=== PATIENT | male | born 1990 | race Caucasian/White ===

== ENCOUNTER 2018-03-03 22:58 | Emergency (ER) | payer OTHER, SELFPAY ==
--- NOTE | 2018-03-03 22:58 | DT_ITS ---
This patient was seen during an EMR downtime March 04, 2018 - March 11, 2018. This patient may have a combination of paper and electronic documentation or all paper documentation. All documentation is viewable within the e-chart portion of [employer] for each patient visit.
[2018-03-03 23:00] VITALS: BP 173/117; PULSE 119; RESP 19; TEMP 36.4; O2SAT 99; BMI 33.3
--- NOTE | 2018-03-03 23:17 | ED.VISSUMM ---
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 He denies any obvious injury or direct trauma to the area. He reports the area is more uncomfortable with motion the left upper extremity. No other complaints at this time. Physical Examination: [] Afebrile, vital signs stable. 27-year-old male no acute distress. Conversational. Examination of the back reveals left-sided medial thoracic/rhomboid tenderness palpation. No midline cervical, thoracic, lumbosacral spine tenderness. Back exam was otherwise very benign. Test Results: [] None. Emergency Department Course and Treatment: [] Patient given intramuscular Toradol for analgesia. He did not require any further treatment or evaluation. He was given no prescription at discharge and encouraged to take [id number] NSAIDs or Tylenol. Treatment Plan: [] Follow-up with primary care physician. Disposition: [] Discharge, stable. Impression: [] Thoracic muscle strain This note was generated with Five9 dictation software. It may contain incorrect words, spelling, and punctuation that were not noted in review of the chart prior to signing ED Disposition - Plan for ED Patient: Chief Complaint: Back Referrals: Care Physician,No Primary [Primary Care Provider] -
--- NOTE | 2018-03-03 23:20 | ED.DCSUM_ITS ---
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 He denies any obvious injury or direct trauma to the area. He reports the area is more uncomfortable with motion the left upper extremity. No other complaints at this time. Physical Examination: [] Afebrile, vital signs stable. 27-year-old male no acute distress. Conversational. Examination of the back reveals left-sided medial thoracic/rhomboid tenderness palpation. No midline cervical, thoracic, lumbosacral spine tenderness. Back exam was otherwise very benign. Test Results: [] None. Emergency Department Course and Treatment: [] Patient given intramuscular Toradol for analgesia. He did not require any further treatment or evaluation. He was given no prescription at discharge and encouraged to take hedy-uqh-lytmaed NSAIDs or Tylenol. Treatment Plan: [] Follow-up with primary care physician. Disposition: [] Discharge, stable. Impression: [] Thoracic muscle strain This note was generated with [employer] dictation software. It may contain incorrect words, spelling, and punctuation that were not noted in review of the chart prior to signing ED Disposition - Plan for ED Patient: Chief Complaint: Back Referrals: Care Physician,No Primary [Primary Care Provider] -
--- NOTE | 2018-03-03 23:20 | ED.DEP ---
ED Disposition - Plan for ED Patient: Disposition: Home or Assisted Living Chief Complaint: Back Instructions: ED Sprain Thoracic Spine Referrals: Care Physician,Katie Primary [Primary Care Provider] - [facility] [[facility]] -
[2018-03-03] MEDS: Ketorolac 30 MG/ML Syringe IM (23:38)
[2018-03-04 00:02] VITALS: BP 148/108; PULSE 101; RESP 16
== END 2018-03-04 00:04 | disposition home or self-care (01) ==
LOC: ED 23:32
PROVIDERS: Emergency Provider Emergency Medicine
DX: S29.012A Strain of muscle and tendon of back wall of thorax, initial encounter (principal); X50.1XXA Overexertion from prolonged static or awkward postures, initial encounter; Y93.89 Activity, other specified; Y92.63 Factory as the place of occurrence of the external cause; Y99.0 Civilian activity done for income or pay
CPT/HCPCS: 99283

== ENCOUNTER 2023-10-05 20:43 | Emergency (ER) | payer BC, SELFPAY ==
[2023-10-05 20:43] VITALS: BP 175/97; PULSE 92; RESP 16; TEMP 36.6; O2SAT 98; BMI 36.9
--- NOTE | 2023-10-06 00:02 | EX.ED.DYSGE1 ---
HPI <Dr. Goldie Raya DO - Last Filed: 10/14/23 07:05> History of Present Illness Chief Complaint: Cold Sx Informant: patient Narrative Narrative: Patient is a 33-year-old male with no significant past medical history presenting with 4 days of flulike symptoms and sore throat. He states it started Sunday evening, 3 days ago where he felt like he needed to cough and really could not get anything moving. The next day he hurt all over and had bodyaches. He has developed congestion, neck soreness, headache and sore throat. He states he is felt warm but has not checked his temperature. Denies any nausea vomiting or diarrhea. Denies any abdominal pain. Been alternating NyQuil and DayQuil which does help with some of his symptoms. Notes that since the DayQuil roll off his headache has returned. Denies any sick contacts. No other complaints or concerns at this time. States swallowing is quite painful. PFSH <Dr. Goldie Raya DO - Last Filed: 10/14/23 07:05> [facility] Home Medications Ibuprofen [Motrin] 800 mg PO TID PRN PRN Pain #20 tabs 06/14/16 [Rx Last Taken Unknown] cyclobenzaprine 10 mg tablet 10 mg PO TID PRN Muscle Spasm ##20 06/14/16 [Rx Last Taken Unknown] Allergy/AdvReac Type Severity Reaction Status Date / Time No Known Allergies Allergy Verified 10/05/23 20:46 Social History Smoking Status: Never smoker ROS <Dr. Goldie Raya DO - Last Filed: 10/14/23 07:05> ROS ED Constitutional Constitutional ED: Reports chills and sweats; Denies fever(s) ENT ENT ED: Reports sore throat; Denies ear pain or rhinorrhea Cardiovascular Cardiovascular: Denies chest pain Respiratory/Chest Respiratory/Chest: Reports cough; Denies dyspnea Gastrointestinal Gastrointestinal: Denies abdominal pain, diarrhea, nausea or vomiting Genitourinary Genitourinary ED: Denies dysuria Musculoskeletal Musculoskeletal: Reports myalgias; Denies arthralgias Integumentary Denies rash Neurologic Neurologic: Reports headache(s); Denies weakness EXAM <Dr. Goldie Raya DO - Last Filed: 10/14/23 07:05> Physical Exam Const Vital Signs: 10/05/23 20:43 10/06/23 00:02 10/06/23 00:04 Temperature 98 F Temperature Source Temporal Pulse Rate 92 86 Respiratory Rate 16 18 Respiratory Effort Normal Non-Labored Respiratory Pattern Normal Blood Pressure 175/97 H 145/87 H Blood Pressure Mean 123 106 Pulse Ox 98 96 Oxygen Delivery Method Room Air Room Air Positive well nourished and well developed General Appearance ED: well developed and NAD HEENT Reports moist mucous membranes HEENT Narrative: Mild injection of the left tympanic membrane with no effusion or bulging/retraction appreciated. Normal right panic membrane. Uvula is midline. Patient has erythema, exudate and mild edema of the bilateral tonsils, left worse than right. Eyes PERRL and EOMs intact bilaterally Neck No no lymphadenopathy and supple Neck Narrative: Normal range of motion of the neck, mild tender lymphadenopathy of the anterior cervical chain superior aspect Chest Wall inspection of chest normal and palpation of chest normal Resp normal respiratory effort and clear to auscultation bilaterally Cardio regular rate, regular rhythm and no murmurs GI normal to inspection, nondistended, normoactive bowel sounds and non-tender Extremity normal to inspection Neuro oriented x3 Sensorium / Orientation: alert Psych mental status grossly normal Skin no rashes or lesions noted and no wounds <Dr. Joel Vegas, DO - Last Filed: 10/06/23 02:39> Physical Exam Const Vital Signs: 10/05/23 20:43 10/06/23 00:02 10/06/23 00:04 Temperature 98 F Temperature Source Temporal Pulse Rate 92 86 Respiratory Rate 16 18 Respiratory Effort Normal Non-Labored Respiratory Pattern Normal Blood Pressure 175/97 H 145/87 H Blood Pressure Mean 123 106 Pulse Ox 98 96 Oxygen Delivery Method Room Air Room Air MDM <Dr. Goldie Raya, DO - Last Filed: 10/14/23 07:05> [facility] MDM Narrative Medical decision making narrative: Patient is evaluated for flulike symptoms as well as sore throat. Physical exam is most concerning for strep pharyngitis or pharyngitis of some sort. Protocol COVID, flu and RSV swab was obtained which is negative. Will swab for strep and give a dose of Decadron as well as Motrin for symptom control. Patient's vital signs are noted to be significant for hypertension. Patient is never been formally diagnosed with high blood pressure but is often told whenever he has his blood pressure checked it is elevated. Does not have a primary care doctor but will refer to 1. He is nontoxic-appearing and anticipate treat him symptomatically ? antibiotics pending strep swab. Signed out to oncoming physician pending strep swab results. <Dr. Joel Vegas, DO - Last Filed: 10/06/23 02:39> [facility] Treatment and Re-Evaluation Comments:: Patient was signed out to me while awaiting results of his viral swabs and rapid strep. Viral swabs are negative and rapid strep is also negative. By exam he does not have changes suggest peritonsillar or retropharyngeal abscess he is not in acute respiratory distress and therefore there is no need for further workup and he is otherwise safe for discharge Discharge Plan Triage Chief Complaint: Cold Sx ED Provider: Goldie Raya Dx/Rx/DC Orders Clinical Impression: Upper respiratory tract infection, Viral pharyngitis Instructions: ED Pharyngitis, Viral, ED URI, Viral, No Abx (Adult) Prescriptions: No Action Ibuprofen [Motrin] 800 MG tablet 800 mg PO TID PRN PRN (Reason: Pain) Qty: 20 0RF cyclobenzaprine 10 MG tablet 10 mg PO TID PRN (Reason: Muscle Spasm) Qty: 20 0RF Stand Alone Forms: ED Work / School Excuse Primary Care Provider: Care Physician,No Primary Referrals: Pam Duenas MD [Med Staff - Med Dir] - As soon as possible Care Physician,No Primary [Primary Care Provider] - Activity Restrictions/Additional Instructions: Your symptoms are consistent with a viral infection which will take anywhere from 7 to 21 days to resolve. Continue with Tylenol Motrin NyQuil and DayQuil for symptom control and return to the ER should you have any further concerns Disposition Disposition: Home, Self Care Discharge Date/Time: 10/06/23 02:46
[2023-10-06 00:04] VITALS: BP 145/87; PULSE 86; RESP 18; O2SAT 96
[2023-10-06] MEDS: Ibuprofen 600 MG Tablet PO (00:09)
[2023-10-06] MEDS: dexAMETHasone 10 MG/ML Vial PO.IVFORM (00:10)
--- OUTSIDE RECORDS SUMMARY | 2023-10-06 00:43 | XMS RPT_ITS | CCD ---
Author Name Unknown Address [address] [place] [address] [facility] Care Team Providers Care Quill Fixer Name Role Phone RosanneShahidLogan Unavailable Unavailable Perez, Russ Unavailable Unavailable Rosanne, Logan Unavailable Unavailable Dean, Reyna D Unavailable Unavailable Perez, Russ Unavailable Unavailable Hollister, Reyna D Unavailable Unavailable Dean, Reyna D Unavailable Unavailable Dean, Reyna D Unavailable Unavailable Perez, Russ Unavailable Unavailable Hollister, Reyna D Unavailable Unavailable Hollister, Reyna D Unavailable Unavailable Perez, Russ Unavailable Unavailable Thomae, Adin R Unavailable Unavailable Perez, Russ Unavailable Unavailable Thomae, Adin R Unavailable Unavailable Thomae, Adin R Unavailable Unavailable Perez, Russ Unavailable Unavailable Thomae, Adin R Unavailable Unavailable Self Referral, Patient Unavailable Unavailab le Perez, Russ Unavailable Unavailable Thomae, Adin R Unavailable Unavailable Allergies Allergy Classification Reported Allergen(s) Allergy Type Date of Onset Reaction(s) Facility (1 source) No Known Medication Allergies; Translations: [No Known Medication Allergies] Propensity to adverse reactions to drug (disorder) [facility] Repository Results Test Name Value Interpretation Reference Range Facil ity Encounters Encounter Date Encounter Type Care Provider Facility Start: 10-10-2018 Patient encounter procedure Adin Smith Facility:[facility] Start: 06-20-2018 End: 06-21-2018 Patient encounter procedure Adin Smith Facility:Adin Smith DO Start: 03-21-2018 End: 03-22-2018 Patient encounter procedure Adin Smith Facility:Adin Smith DO Start: 02-04-2018 End: 02-05-2018 Patient encounter procedure Reyna Moran Facility:[facility] Start: 01-25-2018 End: 01-26-2018 Patient encounter procedure Reyna Moran Facility:[facility] Start: 01-25-2018 End: 01-26-2018 Patient encounter procedure Reyna Moran Facility:[facility] Start: 10-12-2017 End: 10-13-2017 Patient encounter procedure Logan Lay Facility:[facility] Procedures Date Procedure Procedure Detail Performing Clinician Start: 11-19-2020 Follow-up visit Start: 11-03-2020 Echocardiography Start: 10-29-2020 Follow-up visit Start: 10-18-2020 Follow-up visit Payers Date Payer Category Payer Unknown 1990 Unknown [id number] 2.16.84 [id number] 1990 Unknown [id number] 2.16.84 [id number] 1990 Unknown [id number] 2.16.84 [id number] 1990 Unknown [id number] 2.16.84 [id number] 1990 Unknown [id number] 2.16.84 [id number] 1990 Unknown [id number] 2.16.84 [id number] 1990 Unknown [id number] 2.16.84 [id number] Summary Purpose Family History No Family History Records FoundNo Family History Records FoundNo Family History Records Found Advance Directives No Advanced Directives Records FoundNo Advanced Directives Records FoundNo Advanced Directives Records Found Additional Source Comments (unrecognized sect ion and content) No Status Records FoundNo Status Records FoundNo Status Records Found INFORMATION SOURCE (unrecogn ized section and content) DATE CREATED AUTHOR AUTHOR'S ORGANIZ ATION 11/12/2020 [facility] DATE CREATED AUTHOR AUTHOR'S ORGANIZ ATION 11/21/2020 [facility] FOR RECORDS PERTAINING TO PATIENTS WHO ARE OR HAVE BEEN ENROLLED IN A CHEMICAL DEPENDENCY/SUBSTANCEABUSE PROGRAM, SOME INFORMATION MAY BE OMITTED. This clinical summary was aggregated from multiple sources. Caution should be exercised in using it in the provision of clinical care. This summary normalizes information from multiple sources, and as a consequence, information in this document may materially change the coding, format and clinical context of patient data. In addition, data may be omitted in some cases. CLINICAL DECISIONS SHOULD BE BASED ON THE PRIMARY CLINICAL RECORDS. [facility] [employer] [facility]. provides no warranty or guarantee of the accuracy or completeness of information in this document.
[2023-10-06 02:44] VITALS: BP 138/88; PULSE 82; RESP 18; O2SAT 96
== END 2023-10-06 02:46 | disposition home or self-care (01) ==
PROVIDERS: Emergency Provider Emergency Medicine; Visit Provider Emergency Medicine
DX: J06.9 Acute upper respiratory infection, unspecified (principal); B97.89 Other viral agents as the cause of diseases classified elsewhere
CPT/HCPCS: 87631; 87651; 99282

== ENCOUNTER 2025-02-26 21:58 | Emergency (ER) | payer BC, SELFPAY ==
[2025-02-26 21:59] VITALS: BP 167/105; PULSE 97; RESP 15; TEMP 35.8; O2SAT 98; BMI 36.8
--- NOTE | 2025-02-26 23:19 | EX.ED.VIS.EY ---
HPI History of Present Illness Chief Complaint: Eye Problem Narrative Narrative: Awaken 9 PM redness to eye irritation. No blurry vision. Wears glasses for distance. Last visual exam last summer. Denies foreign body sensation. Prior similar symptoms: No PFSH PFSH Medical History no medical history Home Medications ?Medication ?Instructions ?Recorded ?Last Taken ?Type Ibuprofen [Motrin] 800 mg PO TID PRN PRN Pain #20 tabs 06/14/16 Unknown Rx cyclobenzaprine 10 mg tablet 10 mg PO TID PRN Muscle Spasm ##20 06/14/16 Unknown Rx lisinopril 10 mg tablet 10 mg PO DAILY 02/26/25 Unknown History lisinopril 20 mg tablet 20 mg PO DAILY 02/26/25 Unknown History Allergy/AdvReac Type Severity Reaction Status Date / Time No Known Allergies Allergy Verified 02/26/25 21:59 Family History no significant family his Surgical History no surgical history Social History Smoking Status: Never smoker ROS ROS ED Constitutional Constitutional ED: Denies fever(s) Eyes Eyes: Reports other Details: Redness to left eye ; Denies blurry vision or change in vision Cardiovascular Cardiovascular: Denies chest pain Respiratory/Chest Respiratory/Chest: Denies cough Gastrointestinal Gastrointestinal: Denies diarrhea or vomiting Musculoskeletal Musculoskeletal: Denies none Integumentary Denies rash or wounds Neurologic Neurologic: Denies weakness EXAM Physical Exam Const Vital Signs: 02/26/25 21:59 Temperature 96.5 F L Temperature Source Temporal Pulse Rate 97 Respiratory Rate 15 Blood Pressure 167/105 H Blood Pressure Mean 125 Pulse Ox 98 Oxygen Delivery Method Room Air Positive well nourished and well developed General Appearance ED: well developed HEENT normocephalic and atraumatic Eyes Eyes Narrative: Visual acuity 20/25 OD, 20/20 OS. Left eye Lids evaluated moist Q-tips eyelid everted no foreign body noted. Tetracaine instilled in left eye. Slit-lamp examination erythematous sclera. Fluorescein with dryness laterally. No ulceration no abrasions. Neck full ROM Resp normal respiratory effort and normal air movement Cardio regular rate and regular rhythm GI soft to palpation Extremity normal to inspection and full ROM Neuro oriented x3 Skin no rashes or lesions noted and no wounds MDM MDM MDM Narrative Medical decision making narrative: Interventions / MDM: Differential diagnosis: Conjunctivitis Diagnosis considered but do not suspect: No corneal foreign body, no abrasion, no ulcerations My EKG interpretation: N/A Imaging independently reviewed and interpreted by myself: N/A External documents reviewed: N/A Test considered but not ordered:N/A ED course: Left eye conjunctivitis visual acuity intact no abrasions or ulcers. He started on antibiotic drops outpatient follow-up with ophthalmology. Re-evaluation: stable Disposition discussed with patient/family/significant other: Case discussed with consulting clinician: N/A This note was generated with [employer] dictation software. It may contain incorrect words, spelling, and punctuation that were not noted in checking the note before signing. Discharge Plan Triage Chief Complaint: Eye Problem ED Provider: Pranav Goodman Dx/Rx/DC Orders Clinical Impression: Acute conjunctivitis, left eye, Redness of eye, left Instructions: ED Conjunctivitis, Nonspecific Prescriptions: No Action Ibuprofen [Motrin] 800 MG tablet 800 mg PO TID PRN PRN (Reason: Pain) Qty: 20 0RF cyclobenzaprine 10 MG tablet 10 mg PO TID PRN (Reason: Muscle Spasm) Qty: 20 0RF lisinopril 20 mg tablet 20 mg PO DAILY lisinopril 10 mg tablet 10 mg PO DAILY Primary Care Provider: Logan Lay Referrals: Logan Lay MD [Primary Care Provider] - Sheldon Ruiz MD [Med Staff - Active Staff] - 1 Week Activity Restrictions/Additional Instructions: Use eyedrops twice a day for the next 7 days. Follow-up with ophthalmology. Print Language: Nigerian Disposition Disposition: Home, Self Care Discharge Date/Time: 02/26/25 23:39
[2025-02-26] MEDS: Ciprofloxacin 0.3% 2.5ml Bottle 1 DRP LEFT EYE (23:33)
[2025-02-26] MEDS: Fluorescein 1 MG STRIP 1 STRIP OPHTHALMIC (23:34)
[2025-02-26] MEDS: Tetracaine 0.5% Ophthalmic Bottle 1 DRP OPHTHALMIC (23:34)
[2025-02-26 23:36] VITALS: BP 151/109; PULSE 82; RESP 16; TEMP 36.7; O2SAT 97
== END 2025-02-26 23:39 | disposition home or self-care (01) ==
PROVIDERS: Emergency Provider Emergency Medicine; PCP Family Medicine; Referring Provider Emergency Medicine; Visit Provider Emergency Medicine
DX: H10.32 Unspecified acute conjunctivitis, left eye (principal)
CPT/HCPCS: 99284